=== PATIENT | female | born 1970 | race Caucasian/White ===

== ENCOUNTER 2019-01-30 16:05 | Emergency (ER) | payer OTHER ==
[2019-01-30] MEDS ORDERED: ACETAMINOPHEN 325 MG TABLET PO ONE (16:47)
[2019-01-30] MEDS ORDERED: IBUPROFEN 600 MG TABLET PO ONE (16:47)
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
[2019-01-30 18:48] VITALS: BP 137/78
== END 2019-01-30 18:35 | disposition home or self-care (01) ==
LOC: ER 16:05
DX: M54.2 Cervicalgia (principal); M25.512 Pain in left shoulder; R51 Headache; M54.5 Low back pain; G89.29 Other chronic pain; R11.0 Nausea; V87.7XXA Person injured in collision between other specified motor vehicles (traffic), initial encounter; I50.9 Heart failure, unspecified; I11.0 Hypertensive heart disease with heart failure; E11.9 Type 2 diabetes mellitus without complications
CPT/HCPCS: 70450; 72125; 99284